=== PATIENT | male | born 1980 | race Hispanic/Latino ===

== ENCOUNTER 2020-10-02 08:14 | Emergency (ER) | payer OTHER, SELFPAY ==
[2020-10-02 08:19] VITALS: PULSE 99; O2SAT 95
[2020-10-02 08:25] VITALS: BP 165/91; PULSE 99; RESP 18; TEMP 36.8; O2SAT 96; BMI 50.2
[2020-10-02 08:30] VITALS: PULSE 90; RESP 18; O2SAT 96
--- NOTE | 2020-10-02 08:32 | ED_ITS ---
HPI - Allergic Reaction General Chief complaint: Allergic Reaction Stated complaint: allergic reaction,hives Time Seen by Provider: 10/02/20 08:25 Source: patient Mode of arrival: Ambulatory Limitations: no limitations History of Present Illness HPI narrative: This is a 40-year-old male who comes to the emergency department with concern for allergic reaction and hives. Patient states on Friday he had shrimp and about that time he started having itching on his scalp. Overnight he developed hives, he was seen a prescribed Benadryl which was helpful but continued to have worsening symptoms and was given prednisone yesterday as well as Pepcid. He had significant improvement during the day but about 530 this morning when he woke up his hives had worsened and he developed swelling of his lips. He states yesterday he did have some swelling of his tongue, he also was nauseated but did have any vomiting. He has not had any diarrhea. Has felt a little bit tight in the back of his throat. Patient does have a history of hypertension as well as diabetes and takes oral medication. He denies any surgeries. He does not smoke, he drinks 1 drink daily and occasionally uses marijuana. He has been quite stressed both of his parents recently and he and his entire family or treated for COVID and he was cleared medically on August 21 for COVID. Patient has not had similar symptoms in the past. He d oes not have any known allergies to shellfish but states that it did start almost exactly the same time. Related Data Previous Rx's Medication Instructions Recorded epinephrine 0.3 mg IM Q5-15M PRN #2 ea 10/02/20 prednisone 20 mg PO BID #10 tab 10/02/20 Allergies Allergy/AdvReac Type Severity Reaction Status Date / Time No Known Drug Allergies Allergy Verified 10/02/20 08:27 Review of Systems Review of Systems ROS Unobtainable: All systems reviewed & are unremarkable except as noted in HPI and below Patient History Medical History (Updated 10/02/20 @ 08:42 by Pia Alatorre DO) Diabetes Hypertension Social History Smoking Status: Never smoker Smoking Status: Never smoker alcohol intake frequency: 0-2 drinks per day Substance Use Type: marijuana Exam Narrative Exam Narrative: GEN: well nourished, well appearing obese male, alert and oriented x 3, patient appears to be in mild distress. HEENT: Atraumatic, pupils are equal round reactive to light, extraocular movements are intact, nares are clear, TMs are clear with no fluid, there is no conjunctival pallor. Throat is clear without any exudates, erythema, tonsillar enlargement or uvular deviation, patient does have swelling of upper and lower lips. HEART: Regular rate and rhythm without murmur, clicks, rubs. LUNGS:Lungs clear to auscultation, no wheezes, rales, crackles, chest moves symmetrically, no tachypnea, accessory muscle use or stridor. ABD:bowel sounds normal, soft, non-tender, no guarding, rebound, rigidity, no masses noted, no hepatosplenomegaly MSCL: Non-tender, no muscle atrophy, muscles strength 5/5 upper and lower extremities, full range of motion, normal gait NEURO:CN 2-12 intact, sensation normal SKIN: Patient has erythematous raised rash patchy and we will like formation particularly on his upper torso but also appreciated on his extremities. Initial Vital Signs Initial Vital Signs: Vital Signs Pulse Rate 99 H 10/02/20 08:19 Pulse Oximetry 95 10/02/20 08:19 Course Orders Ordered: Discontinued Medications Diphenhydramine HCl (Diphenhydramine 50 Mg/Ml Vial) 50 mg IV NOW ONE Stop: 10/02/20 08:33 Last Admin: 10/02/20 08:43 Dose: 50 mg Documented by: STEPHANIE Epinephrine HCl (Epinephrine 1 Mg/Ml) 0.5 mg IM NOW ONE Stop: 10/02/20 08:37 Last Admin: 10/02/20 08:42 Dose: 0.5 mg Documented by: STEPHANIE Famotidine (Pepcid) 20 mg in 50 mls @ 200 mls/hr IV NOW ONE Stop: 10/02/20 08:46 Last Infusion: 10/02/20 09:08 Dose: 0 mls/hr Documented by: Admin: 10/02/20 08:43 Dose: 200 mls/hr Documented by: STEPHANIE Sodium Chloride (Normal Saline 0.9%) 1,000 mls @ 1,000 mls/hr IV BOLUS ONE Stop: 10/02/20 09:35 Last Admin: 10/02/20 08:56 Dose: 1,000 mls/hr Documented by: STEPHANIE Methylprednisolone (Methylprednisolone 125 Mg/2 Ml Vial) 125 mg IV NOW ONE Stop: 10/02/20 08:33 Last Admin: 10/02/20 08:43 Dose: 125 mg Documented by: STEPHANIE Reevaluation(s) Reevaluation #1: Patient feeling better, was able to ambulate to bathroom and return. Time: 09:08 Reevaluation #2: Patient swelling is significantly improved and feeling better. He is quite sleepy from benadryl. Instructions given to patient and regarding medications and to carry epi pen and avoid shrimp as likely source of reaction. Time: 10:31 Vital Signs Vital signs: Vital Signs - 8 hr 10/02/20 09:00 10/02/20 10:30 Pulse Rate 94 H 98 H Respiratory Rate 18 18 Blood Pressure 167/92 H 151/85 H Pulse Oximetry 96 96 MDM - Allergic Reaction Lab Data Labs: Point of Care Testing Glucose POC 201 Urine Dip Bedside Urine Glucose Negative Bedside Urine Bilirubin - Negative Bedside Urine Ketone - Negative Urine Specific [place] 1.010 Bedside Urine Occult Blood - Negative Bedside Urine pH 6.0 Bedside Urine Protein - Negative Bedside Urine Urobilinogen - Negative Bedside Urine Nitrite - Negative Bedside Urine Leukocytes - Negative Esterase MDM Narrative Medical decision making narrative: Patient developed hives and ultimately swelling of his lips over the last several days after ingesting shrimp. Patient received oral prednisone and Benadryl continues to have symptoms. He has developed swelling of his lips feels a little bit tight in his throat. He was given Solu-Medrol, Pepcid as well as epi IM here in the department. After monitoring patient has been improving rashes present but is significantly better and his lip swelling is also significantly better. Suspect that he is having a anaphylactic reaction to shrimp. We did discuss that the steroids will increase his blood sugars and continue to monitor them. To adjust his prednisone prescription, continue Pepcid and was given a prescription for EpiPen. Discharge Plan Departure Patient Disposition: Home Clinical Impression: Allergic reaction Instructions: DI for Anaphylaxis Activity Restrictions/Additional Instructions: There is no evidence of an emergent or life threatening illness at this time, but follow up with your doctor in 1-2 days is recommended. Please call the office to set up an appointment. Please return to the Emergency Department for any worsening or persistent symptoms. Please take medications as directed, you may take benadryl 1-2 tablets over the counter every 6-8 hours as needed for itching. Take steroids until they are gone, check it a prescription you already have a fits the same you do not have to fill the new prescription. If it is a lesser dose or is not twice daily I would recommend switching to the new prescription. Also continue Pepcid once daily for the next 5 days. And I would continue taking Benadryl over the next 24 hours. General Return Instructions : Return to the Emergency Department for any new or worsening symptoms. Return to the Emergency Department for fevers greater than 100.4, blistering, signs of infection such as increasing redness, swelling, pain or discharge, severe abdominal pain, chest pain, shortness of breath, swelling of the lips or mouth, difficulty swallowing, passing out, persistent vomiting, worrisome rash, or any other new or worsening symptoms. Prescriptions: New epinephrine 0.3 mg/0.3 mL auto-injector 0.3 mg IM Q5-15M PRN (Reason: anaphylaxis) Qty: 2 RF: 0 prednisone 20 mg tablet 20 mg PO BID Qty: 10 RF: 0
[2020-10-02] MEDS: EPINEPHrine 1 MG/ML 0.5 MG IM (08:42)
[2020-10-02] MEDS: methylPREDNISolone 125 MG/2 ML VIAL IV (08:43)
[2020-10-02] MEDS: FAMOTIDINE 20 MG/50 ML PIGGYBACK 200 MG IV (08:43)
[2020-10-02] MEDS: diphenhydrAMINE 50 MG/ML VIAL IV (08:43)
[2020-10-02 08:53] VITALS: BP 163/89; PULSE 90; RESP 19; O2SAT 96
[2020-10-02] MEDS: SODIUM CHLORIDE 0.9% 1,000 ML 1000 ML IV (08:56)
[2020-10-02 09:00] VITALS: BP 167/92; PULSE 94; RESP 18; O2SAT 96
[2020-10-02 10:30] VITALS: BP 151/85; PULSE 98; RESP 18; O2SAT 96
== END 2020-10-02 10:56 | disposition home or self-care (01) ==
PROVIDERS: Emergency Provider Emergency Medicine
DX: T78.40XA Allergy, unspecified, initial encounter (principal); L50.9 Urticaria, unspecified; E66.9 Obesity, unspecified
CPT/HCPCS: 36415; 81003; 82962; 96365; 96372; 96375; 99282; 99284; J0171; J1200; J2930

== ENCOUNTER → 2022-11-27 11:23 | Outpatient (CLI) | payer BC, SELFPAY ==
--- NOTE | 2022-12-11 12:30 | DIET.CONS ---
Dietary Consultation Note Visit Date 11/27/22 Assessment: 42y M attending RD visit for help with diet and lifestyle help to manage his DM2, HTN (150/96) and morbid obesity. Pt diagnosed c DM2 two years ago with current A1c 8.1%. Pt is with young son, lost both parents to covid pna. Pt's motivation for change is being able to easily play with his son and live a long healthy life with family and friends. Pt currently commutes to [employer] for work at [employer], ~[address] on swing shift from ~2pm-10pm five days per week. Historically pt had jobs that were fun and interesting and within [employer] world. Pt on 1,000mg Metformin bid and 20mg glipizide po daily. Pt given Rx for Victoza, however, pt has not started taking (even though in refrigerator) as the thought of giving a daily injection scares him. He states his mother was on insulin and he remembers her giving herself injections and does not want his DM2 to progress to the point that he injects himself in front of his child, too. Pt may be open to GLP Rx as these are once weekly injections and could help with weight loss. Usual Day: Pt eats breakfast with family about noon: toast with egg and water Pt often snacks on drive to work or will grab snack at [email or web address] station partway there. L: 5pm break has snack or SF beverage D: 7pm sometimes meat/rice/veg from home, sometimes meal from work cafeteria Sn: 9pm chips or cookie from store at work Pt tries to limit etoh use to weekends but often will drink 3-4 beers in an evening. Pt with little intentional physical activity besides playing with young son and occasional family walks. Pt has started making overnight oats with the last few weeks to take to work as a snack. Ht: 59 Wt: 346# BMI: 69.8 Nutrition Diagnosis: altered nutrition related laboratory values (A1c, BP, BMI) r/t undesirable food choices and physical inactivity aeb A1c 8.1 despite two DM meds on board, BP 150/96 at last PCP visit, BMI 69.8, pt physically inactive with intake of last minute meals and snacks. Interventions: 1. Using handout, educated pt on pathophysiology of DM2 and importance of diet and exercise. 2. Provided packet on carbohydrate counting. Educated pt on carbohydrate containing foods, practiced label reading and problem solving meals to fit within carb allotment. 3. Discussed ways to increase physical activity including 10 minute walks after meals or taking walk around work campus on breaks if not feeling hungry. 4. Discussed pts hesitance on daily injectable med. Pt is open to working with PCP on alternate option to get A1c in goal range <8, including weekly injectable. EER: 45-60g CHO/meal, 15-30g CHO per snack, 2g sodium/d Monitoring/Evaluations: f/u in 4w to continue education and monitoring. Electronically Signed by: Yuki Turner 11/27/22 12:30 Clinical Dietitian [id number] [place] [address]
== END ==
PROVIDERS: Referring Provider Naturopath; Visit Provider Naturopath
DX: E11.9 Type 2 diabetes mellitus without complications (principal); I10 Essential (primary) hypertension; E66.01 Morbid (severe) obesity due to excess calories; Z68.44 Body mass index [BMI] 60.0-69.9, adult; Z71.3 Dietary counseling and surveillance; Z79.84 Long term (current) use of oral hypoglycemic drugs
CPT/HCPCS: 97802

== ENCOUNTER → 2023-01-01 11:16 | Outpatient (CLI) | payer BC, SELFPAY ==
--- NOTE | 2023-01-13 16:37 | DIET.OUTPTC ---
Dietary Outpatient Consultation Note Consultation Date: 01/01/2023 42[address] M attending RD f/u for DM2. Pt states he has been doing well with meal and snack planning. He is not currently checking his BG. States barrier is getting into the routine of it. Pt states he often feels hypoglycemic but does not check BG. Pt has appointment with PCP next week to discuss alternate options for DM injectables. Pt has listened to a few programs on them and is more open to them than he was last visit. Pt states part of his high BMI includes some soothing with food. Pt states when he overeats, it feels like a hug. Pt endorses family focus on food- mourning/celebrating. Interventions: 1. Educated pt on importance of checking BGs- FBG and 1 or 2h PP to help manage DM2. Pt will keep glucometer by model maker scale and check BG every morning recording values to bring to next visit. Pt will set timer on phone to check 1h PP at least once daily and bring to next visit. Reinforced importance of knowing how body processes variety of meal types. 2. Encouraged pt to explore alternate coping/celebration strategies to implement alternate to/in addition to food. Pt enjoys talking with family on the phone and listening to podcasts. 3. Reinforced pts efforts at collaborating with PCP on medication management. F/u in 6w to review BGs and continue support. Electronically Signed by: Yuki Turner 01/13/23 16:37 Clinical Dietitian [id number] [place] [address]
== END ==
PROVIDERS: Referring Provider Naturopath; Visit Provider Naturopath
DX: E11.9 Type 2 diabetes mellitus without complications (principal); Z71.3 Dietary counseling and surveillance
CPT/HCPCS: 97803